=== PATIENT | male | born 1980 | race Caucasian/White ===

== ENCOUNTER 2023-07-06 13:36 | Emergency (ER) | payer OTHER | END 2023-07-06 14:09 | LOC: FB.ED 13:36 | DX: F15.90 Other stimulant use, unspecified, uncomplicated (principal); I10 Essential (primary) hypertension; F17.210 Nicotine dependence, cigarettes, uncomplicated | CPT/HCPCS: 99283; 99284 ==

== ENCOUNTER 2023-07-07 03:39 | Emergency (ER) | payer MEDICAID ==
[2023-07-07] MEDS: Ketorolac 30 MG/ML SDV IM ONE (03:55)
[2023-07-07 04:04] LABS: BASOPHILS ABSOLUTE AUTO 0.1 x10-3/uL (0.0-0.3); BASOPHILS PERCENT AUTO 0.7 % (0.3-3.8); EOSINOPHILS ABSOLUTE AUTO 0.1 x10-3/uL (0.0-0.6); EOSINOPHILS PERCENT AUTO 0.7 % (0.1-6.8); HEMATOCRIT 41.3 % (38.3-50.1); LYMPHOCYTES PERCENT AUTO 7.1 % (15.8-45.3); MEAN CORPUSCULAR HEMOGLOBIN 30.6 pg (27.0-33.3); MEAN CORPUSCULAR HGB CONC 33.8 g/dL (28.7-35.3); MEAN CORPUSCULAR VOLUME 90.6 fL (80.8-98.7); MEAN PLATELET VOLUME 7.5 fL (6.7-11.0); MONOCYTES ABSOLUTE AUTO 1.2 x10-3/uL (0.0-1.2); NEUTROPHILS ABSOLUTE AUTO 12.1 x10-3/uL (1.7-6.9); NEUTROPHILS PERCENT AUTO 83.5 % (40.3-71.8); PLATELET COUNT,PLT 214 x10(3)uL (117-477); RED BLOOD CELL COUNT 4.56 x10(6)uL (3.90-5.90); RED CELL DISTRIBUTION WIDTH 13.2 % (12.4-15.0); WHITE BLOOD CELL COUNT,WBC 14.5 x10-3/uL (3.2-10.1)
[2023-07-07 04:12] LABS: BLOOD UREA NITROGEN,BUN 13 mg/dL (7-18); BUN/CREATININE RATIO 14.4 (9-20); CALCIUM 8.6 mg/dL (8.6-10.2); CARBON DIOXIDE,CO2 23 mmol/L (21-32); CHLORIDE,CL 105 mmol/L (100-110); CREATININE 0.9 mg/dL (0.70-1.30); ESTIMATED GFR 109 mL/min (>60); GLUCOSE RANDOM 100 mg/dL (80-116); POTASSIUM,K 3.8 mmol/L (3.5-5.3); SODIUM,NA 139 mmol/L (135-145)
[2023-07-07 04:17] LABS: A/G RATIO 1.2; ALANINE AMINOTRANSFERASE,ALT 31 U/L (12-36); ALBUMIN 3.6 g/dL (3.5-5.2); ALKALINE PHOSPHATASE 67 IU/L (56-112); ASPARTATE AMNIOTRANSFERASE,AST 42 IU/L (5-25); BILIRUBIN TOTAL 1.8 mg/dL (0.1-1.3); PROTEIN TOTAL,TP 6.6 g/dL (6.0-8.0)
[2023-07-07] MEDS: cefTRIAXone 2 GM Vial IVPUSH ONE (05:23)
[2023-07-07] MEDS: VANCOmycin 1.5 GM/300 ML 1.5 GM in Premix Bag 1 BAG IV ONE (05:23)
== END 2023-07-07 07:49 ==
LOC: FB.ED 03:39
DX: L03.012 Cellulitis of left finger (principal); D72.829 Elevated white blood cell count, unspecified; R79.82 Elevated C-reactive protein (CRP); R93.89 Abnormal findings on diagnostic imaging of other specified body structures; Z79.899 Other long term (current) drug therapy
CPT/HCPCS: 36415; 73140; 80053; 85025; 86140; 87070; 87205; 96365; 96366; 96372; 96375; 99284; J0696; J1885; J3370